=== PATIENT | female | born 1955 | race Caucasian/White ===

== ENCOUNTER 2016-10-17 18:40 | Inpatient (IN) | payer MEDICAID, OTHER ==
[~2016-10-17] VITALS: Ht 167.6 cm; Wt 58.1 kg
[2016-10-17] MEDS ORDERED: SERT50TA12 PO (19:00)
[2016-10-17] MEDS ORDERED: GABA-529 PO (19:00)
[2016-10-17] MEDS ORDERED: TRAZ-144 PO (19:00)
[2016-10-17] MEDS ORDERED: LORA0.5T2 PO (19:00)
[2016-10-17 19:06] LABS: EOSINOPHILS % (AUTO) 1.1 % (1.0-6.0); HEMATOCRIT 30.2 % (36-46); HEMOGLOBIN 9.9 g/dL (12.0-16.0); LYMPHOCYTES # (AUTO) 2.9 K/uL (1.0-4.8); LYMPHOCYTES % (AUTO) 29.4 % (22.0-44.0); MEAN CORPUSCULAR HEMOGLOBIN 29.1 pg (26.0-34.0); MEAN CORPUSCULAR HGB CONC 32.9 G/dL (31.0-37.0); MEAN CORPUSCULAR VOLUME 89 fL (80-100); MONOCYTES # (AUTO) 0.5 K/uL (0.1-1.0); MONOCYTES % (AUTO) 4.9 % (2.0-9.0); NEUTROPHILS # (AUTO) 6.3 K/uL (1.8-7.7); NEUTROPHILS % (AUTO) 63.6 % (40.0-70.0); PLATELET COUNT (AUTO) 505 K/uL (150-450); RED CELL DISTRIBUTION WIDTH 20.3 % (11.5-14.5); WHITE BLOOD COUNT (AUTO) 9.9 K/uL (4.5-11.0)
[2016-10-17 19:18] LABS: ANION GAP 9 mmol/L (8-16); CALCIUM, TOTAL 9.1 mg/dL (8.8-10.5); CARBON DIOXIDE 27 mmol/L (22-29); CHLORIDE 105 mmol/L (98-107); CREATININE 0.79 mg/dL (0.60-1.30); GLOMERULAR FILTR. RATE CALC > 60 mL/min (>60); POTASSIUM 3.5 mmol/L (3.5-5.1); SODIUM SERUM 141 mmol/L (136-145); UREA NITROGEN, BLOOD 8 mg/dL (7-18)
[2016-10-17 19:24] LABS: ALANINE AMINOTRANSFERASE 49 U/L (12-78); ALBUMIN 3.4 g/dL (3.4-5.0); ASPARTATE AMINOTRANSFERASE 47 U/L (15-37); BILIRUBIN,TOTAL 0.5 mg/dL (0.1-1.0); TOTAL PROTEIN, SERUM 6.8 g/dL (6.4-8.2)
[2016-10-17 19:49] LABS: RBC MORPHOLOGY COMMENT ABNORMAL RBC MORPH
[2016-10-17] MEDS ORDERED: LORazepam 2 MG TABLET PO ONE (20:00)
[2016-10-17] MEDS ORDERED: BACITRACIN 0.9 GM PACKET OINTMENT TP ONE (20:00)
[2016-10-17] MEDS ORDERED: ZOLPIDEM TARTRATE 10 MG TABLET PO PRN (20:15)
[2016-10-17] MEDS ORDERED: OLANZapine 5 MG RAPDIS TABLET PO PRN (20:15)
[2016-10-17 22:38] VITALS: BP 111/65
[2016-10-17] MEDS ORDERED: PNEUMOCOCCAL VACCINE POLYVALENT 0.5 ML VIAL [PPSV23] IM ONE (23:45)
[2016-10-18 06:21] VITALS: BP 113/67
[2016-10-18 08:24] VITALS: BP 109/77
[2016-10-18] MEDS: LORazepam 2 MG TABLET PO PRN ×2 (10:24→18:13)
[2016-10-18] MEDS ORDERED: ACETAMINOPHEN 325 MG TABLET PO PRN (10:30)
[2016-10-18 11:25] VITALS: BP 112/78
[2016-10-18] MEDS: GABAPENTIN 100 MG CAPSULE PO SCH (11:28)
[2016-10-18] MEDS: SERTRALINE HCL 50 MG TABLET PO SCH (11:28)
[2016-10-18] MEDS: IBUPROFEN 600 MG TABLET PO PRN (11:29)
[2016-10-18] MEDS: NICOTINE 14 MG/24 HOUR PATCH TD SCH (12:59)
[2016-10-18] MEDS: MULTIVITAMINS WITH IRON TABLET PO SCH (15:00)
[2016-10-18 16:29] VITALS: BP 119/70
[2016-10-18] MEDS: NEOMYCIN/BACITRACIN/POLYMYXIN B 30 GM OINTMENT TP SCH (17:27)
[2016-10-18] MEDS: DOXYCYCLINE 100 MG CAPSULE PO SCH (17:27)
[2016-10-18] MEDS: FERROUS SULFATE 325 MG EC TABLET PO SCH (17:27)
[2016-10-18] MEDS: SULFAMETHOX/TRIMETH DS 800-160 MG/TABLET PO SCH (17:27)
[2016-10-18] MEDS: TraZODone HCL 50 MG TABLET PO SCH (20:31)
[2016-10-19] VITALS (11 sets, daily range): BP systolic 106–121; BP diastolic 60–74
[2016-10-19] MEDS: FERROUS SULFATE 325 MG EC TABLET PO SCH ×2 (06:28→17:02)
[2016-10-19] MEDS: SULFAMETHOX/TRIMETH DS 800-160 MG/TABLET PO SCH ×2 (08:44→17:02)
[2016-10-19] MEDS: GABAPENTIN 100 MG CAPSULE PO SCH (08:44)
[2016-10-19] MEDS: DOXYCYCLINE 100 MG CAPSULE PO SCH ×2 (08:44→17:02)
[2016-10-19] MEDS: SERTRALINE HCL 50 MG TABLET PO SCH (08:45)
[2016-10-19] MEDS: MULTIVITAMINS WITH IRON TABLET PO SCH (08:45)
[2016-10-19] MEDS: IBUPROFEN 600 MG TABLET PO PRN ×2 (08:45→14:48)
[2016-10-19] MEDS: LORazepam 2 MG TABLET PO PRN ×2 (09:23→14:48)
[2016-10-19] MEDS: NICOTINE 14 MG/24 HOUR PATCH TD SCH (09:24)
[2016-10-19] MEDS: NEOMYCIN/BACITRACIN/POLYMYXIN B 30 GM OINTMENT TP SCH ×2 (10:50→17:09)
[2016-10-19] MEDS ORDERED: LORazepam 2 MG TABLET PO PRN (16:00)
[2016-10-19] MEDS ORDERED: GuaiFENesin/D-METHORPHAN [SUGAR-FREE] 200-20MG/10 ML SYRUP UDCUP PO PRN (16:00)
[2016-10-19] MEDS ORDERED: TUBERCULIN, PURIFIED PROTEIN DERIVATIVE 5 TU/0.1 ML SYG ID ONE (16:00)
[2016-10-19] MEDS ORDERED: ACETAMINOPHEN 325 MG TABLET PO PRN (16:00)
[2016-10-19] MEDS ORDERED: LOPERAMIDE HCL 2 MG CAPSULE PO PRN ×2 (16:00)
[2016-10-19] MEDS ORDERED: MAG HYDROX/AL HYDROX/SIMETH ES 30 ML SUSPENSION UDCUP PO PRN (16:00)
[2016-10-19] MEDS ORDERED: MAGNESIUM HYDROXIDE SUSPENSION 30 ML UDCUP PO PRN (16:00)
[2016-10-19] MEDS ORDERED: CYANOCOBALAMIN 1,000 MCG/ML VIAL IM ONE (16:00)
[2016-10-19] MEDS ORDERED: HydrOXYzine PAMOATE 50 MG CAPSULE PO PRN (16:00)
[2016-10-19] MEDS: THIAMINE HCL 100 MG TABLET PO SCH (17:01)
[2016-10-19] MEDS: TOPIRAMATE 25 MG TABLET PO SCH (17:02)
[2016-10-19] MEDS: GABAPENTIN 300 MG CAPSULE PO SCH ×2 (17:02→20:03)
[2016-10-19] MEDS: ACAMPROSATE CALCIUM 333 MG DR TABLET PO SCH (19:00)
[2016-10-19] MEDS: TraZODone HCL 50 MG TABLET PO SCH (20:03)
[2016-10-20] VITALS (9 sets, daily range): BP systolic 102–116; BP diastolic 65–79
[2016-10-20] MEDS: LORazepam 2 MG TABLET PO PRN (06:32)
[2016-10-20] MEDS: IBUPROFEN 600 MG TABLET PO PRN ×2 (06:33→16:24)
[2016-10-20] MEDS: FERROUS SULFATE 325 MG EC TABLET PO SCH ×2 (06:40→16:19)
[2016-10-20] MEDS ORDERED: LORazepam 2 MG TABLET PO PRN (07:00)
[2016-10-20] MEDS: MULTIVITAMINS WITH MINERALS, THERAPEUTIC TABLET PO SCH (08:11)
[2016-10-20] MEDS: THIAMINE HCL 100 MG TABLET PO SCH ×2 (08:11→16:18)
[2016-10-20] MEDS: FOLIC ACID 1 MG TABLET PO SCH (08:11)
[2016-10-20] MEDS: ACAMPROSATE CALCIUM 333 MG DR TABLET PO SCH ×3 (08:11→16:19)
[2016-10-20] MEDS: DOXYCYCLINE 100 MG CAPSULE PO SCH ×2 (08:11→16:19)
[2016-10-20] MEDS: SERTRALINE HCL 50 MG TABLET PO SCH (08:12)
[2016-10-20] MEDS: NICOTINE 14 MG/24 HOUR PATCH TD SCH (08:12)
[2016-10-20] MEDS: LORazepam 2 MG TABLET PO SCH ×4 (08:12→20:51)
[2016-10-20] MEDS: NALTREXONE HCL 50 MG TABLET PO SCH (08:12)
[2016-10-20] MEDS: SULFAMETHOX/TRIMETH DS 800-160 MG/TABLET PO SCH ×2 (08:12→16:19)
[2016-10-20] MEDS: TOPIRAMATE 25 MG TABLET PO SCH ×3 (08:12→16:19)
[2016-10-20] MEDS: GABAPENTIN 300 MG CAPSULE PO SCH ×4 (08:12→20:51)
[2016-10-20] MEDS: NEOMYCIN/BACITRACIN/POLYMYXIN B 30 GM OINTMENT TP SCH ×2 (08:13→16:20)
[2016-10-20] MEDS: TraZODone HCL 50 MG TABLET PO SCH (20:51)
[2016-10-21 04:54] VITALS: BP 100/58
[2016-10-21] MEDS: FERROUS SULFATE 325 MG EC TABLET PO SCH ×2 (07:00→16:47)
[2016-10-21] MEDS: PROMETHAZINE HCL 25 MG TABLET PO PRN ×2 (08:03→20:24)
[2016-10-21 08:20] VITALS: BP 142/95
[2016-10-21 08:30] VITALS: BP 142/95
[2016-10-21] MEDS: ACAMPROSATE CALCIUM 333 MG DR TABLET PO SCH ×3 (08:30→16:47)
[2016-10-21] MEDS: NICOTINE 14 MG/24 HOUR PATCH TD SCH (08:30)
[2016-10-21] MEDS: SERTRALINE HCL 50 MG TABLET PO SCH (08:31)
[2016-10-21] MEDS: THIAMINE HCL 100 MG TABLET PO SCH ×2 (08:32→16:47)
[2016-10-21] MEDS: SULFAMETHOX/TRIMETH DS 800-160 MG/TABLET PO SCH ×2 (08:32→16:46)
[2016-10-21] MEDS: NALTREXONE HCL 50 MG TABLET PO SCH (08:32)
[2016-10-21] MEDS: TOPIRAMATE 25 MG TABLET PO SCH ×3 (08:32→16:47)
[2016-10-21] MEDS: DOXYCYCLINE 100 MG CAPSULE PO SCH ×2 (08:33→16:47)
[2016-10-21] MEDS: LORazepam 2 MG TABLET PO SCH ×5 (08:33→20:23)
[2016-10-21] MEDS: GABAPENTIN 300 MG CAPSULE PO SCH ×4 (08:33→20:24)
[2016-10-21] MEDS: FOLIC ACID 1 MG TABLET PO SCH (08:33)
[2016-10-21] MEDS: MULTIVITAMINS WITH MINERALS, THERAPEUTIC TABLET PO SCH (08:33)
[2016-10-21] MEDS: NEOMYCIN/BACITRACIN/POLYMYXIN B 30 GM OINTMENT TP SCH ×2 (09:00→16:47)
[2016-10-21 16:09] VITALS: BP 111/63
[2016-10-21] MEDS: TraZODone HCL 50 MG TABLET PO SCH (20:24)
[2016-10-22] VITALS (9 sets, daily range): BP systolic 95–113; BP diastolic 48–69
[2016-10-22] MEDS ORDERED: LORazepam 1 MG TABLET PO PRN (07:00)
[2016-10-22] MEDS: FERROUS SULFATE 325 MG EC TABLET PO SCH ×2 (07:02→16:24)
[2016-10-22] MEDS: TOPIRAMATE 25 MG TABLET PO SCH ×2 (09:00→21:00)
[2016-10-22] MEDS: NALTREXONE HCL 50 MG TABLET PO SCH (09:00)
[2016-10-22] MEDS: GABAPENTIN 300 MG CAPSULE PO SCH ×4 (09:00→21:00)
[2016-10-22] MEDS: SERTRALINE HCL 50 MG TABLET PO SCH (09:00)
[2016-10-22] MEDS: LORazepam 1 MG TABLET PO SCH ×4 (09:00→21:00)
[2016-10-22] MEDS: ACAMPROSATE CALCIUM 333 MG DR TABLET PO SCH ×3 (09:00→16:24)
[2016-10-22] MEDS: SULFAMETHOX/TRIMETH DS 800-160 MG/TABLET PO SCH (09:55)
[2016-10-22] MEDS: DOXYCYCLINE 100 MG CAPSULE PO SCH (09:55)
[2016-10-22] MEDS: NICOTINE 14 MG/24 HOUR PATCH TD SCH (09:55)
[2016-10-22] MEDS: THIAMINE HCL 100 MG TABLET PO SCH ×2 (09:56→16:24)
[2016-10-22] MEDS: FOLIC ACID 1 MG TABLET PO SCH (09:56)
[2016-10-22] MEDS: MULTIVITAMINS WITH MINERALS, THERAPEUTIC TABLET PO SCH (09:56)
[2016-10-22] MEDS: NEOMYCIN/BACITRACIN/POLYMYXIN B 30 GM OINTMENT TP SCH ×2 (09:58→16:24)
[2016-10-22] MEDS: TraZODone HCL 50 MG TABLET PO SCH (21:00)
[2016-10-22] MEDS: IBUPROFEN 600 MG TABLET PO PRN (23:01)
[2016-10-23 05:23] VITALS: BP 113/77
[2016-10-23] MEDS: FERROUS SULFATE 325 MG EC TABLET PO SCH ×2 (06:42→16:23)
[2016-10-23] MEDS ORDERED: LORazepam 1 MG TABLET PO PRN (07:00)
[2016-10-23 08:00] VITALS: BP 106/68
[2016-10-23 08:19] LABS: BASOPHILS % (AUTO) 0.9 % (0.0-2.0); EOSINOPHILS % (AUTO) 1.8 % (1.0-6.0); HEMOGLOBIN 10.9 g/dL (12.0-16.0); LYMPHOCYTES # (AUTO) 2.6 K/uL (1.0-4.8); LYMPHOCYTES % (AUTO) 37.8 % (22.0-44.0); MEAN CORPUSCULAR HEMOGLOBIN 29.6 pg (26.0-34.0); MEAN CORPUSCULAR HGB CONC 33.2 G/dL (31.0-37.0); MEAN CORPUSCULAR VOLUME 89 fL (80-100); MONOCYTES # (AUTO) 0.4 K/uL (0.1-1.0); NEUTROPHILS # (AUTO) 3.7 K/uL (1.8-7.7); NEUTROPHILS % (AUTO) 53.5 % (40.0-70.0); PLATELET COUNT (AUTO) 327 K/uL (150-450); RED BLOOD CELL COUNT(AUTO) 3.69 MIL/uL (4.00-5.20); RED CELL DISTRIBUTION WIDTH 20.3 % (11.5-14.5); WHITE BLOOD COUNT (AUTO) 6.9 K/uL (4.5-11.0)
[2016-10-23 08:29] LABS: RBC MORPHOLOGY COMMENT ABNORMAL RBC MORPH
[2016-10-23] MEDS: MULTIVITAMINS WITH MINERALS, THERAPEUTIC TABLET PO SCH (08:48)
[2016-10-23] MEDS: ACAMPROSATE CALCIUM 333 MG DR TABLET PO SCH ×3 (08:48→16:22)
[2016-10-23] MEDS: GABAPENTIN 300 MG CAPSULE PO SCH ×2 (08:48→12:21)
[2016-10-23] MEDS: NALTREXONE HCL 50 MG TABLET PO SCH (08:48)
[2016-10-23] MEDS: FOLIC ACID 1 MG TABLET PO SCH (08:50)
[2016-10-23] MEDS: NICOTINE 14 MG/24 HOUR PATCH TD SCH (08:50)
[2016-10-23] MEDS: THIAMINE HCL 100 MG TABLET PO SCH ×2 (08:50→16:23)
[2016-10-23] MEDS: SERTRALINE HCL 50 MG TABLET PO SCH (08:50)
[2016-10-23 09:06] VITALS: BP 106/68
[2016-10-23 09:15] LABS: ALANINE AMINOTRANSFERASE 34 U/L (12-78); ALBUMIN 3.3 g/dL (3.4-5.0); ANION GAP 9 mmol/L (8-16); ASPARTATE AMINOTRANSFERASE 28 U/L (15-37); BILIRUBIN,TOTAL 0.3 mg/dL (0.1-1.0); CALCIUM, TOTAL 9.2 mg/dL (8.8-10.5); CARBON DIOXIDE 28 mmol/L (22-29); CHLORIDE 107 mmol/L (98-107); CHOL/HDL RATIO 3.8 (3.9-5.7); CREATININE 0.89 mg/dL (0.60-1.30); GLOMERULAR FILTR. RATE CALC > 60 mL/min (>60); POTASSIUM 4.4 mmol/L (3.5-5.1); SODIUM SERUM 144 mmol/L (136-145); TOTAL PROTEIN, SERUM 6.9 g/dL (6.4-8.2); UREA NITROGEN, BLOOD 19 mg/dL (7-18)
[2016-10-23] MEDS: NEOMYCIN/BACITRACIN/POLYMYXIN B 30 GM OINTMENT TP SCH ×2 (09:27→16:23)
[2016-10-23] MEDS ORDERED: GABAPENTIN 300 MG CAPSULE PO PRN (12:45)
[2016-10-23 16:00] VITALS: BP 106/74
[2016-10-23] MEDS: GABAPENTIN 400 MG CAPSULE PO SCH ×2 (16:23→20:12)
[2016-10-23] MEDS: TOPIRAMATE 25 MG TABLET PO SCH (20:12)
[2016-10-23] MEDS: IBUPROFEN 600 MG TABLET PO PRN (20:12)
[2016-10-23] MEDS: TraZODone HCL 50 MG TABLET PO SCH (20:12)
[2016-10-24] MEDS: FERROUS SULFATE 325 MG EC TABLET PO SCH ×2 (06:40→17:06)
[2016-10-24 06:42] VITALS: BP 102/65
[2016-10-24] MEDS: SERTRALINE HCL 100 MG TABLET PO SCH (08:17)
[2016-10-24] MEDS: NALTREXONE HCL 50 MG TABLET PO SCH (08:17)
[2016-10-24] MEDS: MULTIVITAMINS WITH MINERALS, THERAPEUTIC TABLET PO SCH (08:17)
[2016-10-24] MEDS: ACAMPROSATE CALCIUM 333 MG DR TABLET PO SCH ×3 (08:17→16:11)
[2016-10-24] MEDS: NICOTINE 14 MG/24 HOUR PATCH TD SCH (08:17)
[2016-10-24] MEDS: GABAPENTIN 400 MG CAPSULE PO SCH ×4 (08:17→20:04)
[2016-10-24] MEDS: THIAMINE HCL 100 MG TABLET PO SCH ×2 (08:17→16:12)
[2016-10-24] MEDS: FOLIC ACID 1 MG TABLET PO SCH (08:17)
[2016-10-24 08:36] VITALS: BP 99/66
[2016-10-24] MEDS: NEOMYCIN/BACITRACIN/POLYMYXIN B 30 GM OINTMENT TP SCH ×2 (09:00→16:13)
[2016-10-24 16:00] VITALS: BP 104/62
[2016-10-24] MEDS: TraZODone HCL 50 MG TABLET PO SCH (20:04)
[2016-10-24] MEDS: TOPIRAMATE 25 MG TABLET PO SCH (20:05)
[2016-10-25] MEDS: FERROUS SULFATE 325 MG EC TABLET PO SCH ×2 (06:42→17:02)
[2016-10-25 08:07] VITALS: BP 103/63
[2016-10-25] MEDS: MULTIVITAMINS WITH MINERALS, THERAPEUTIC TABLET PO SCH (08:26)
[2016-10-25] MEDS: FOLIC ACID 1 MG TABLET PO SCH (08:26)
[2016-10-25] MEDS: NICOTINE 14 MG/24 HOUR PATCH TD SCH (08:26)
[2016-10-25] MEDS: NALTREXONE HCL 50 MG TABLET PO SCH (08:26)
[2016-10-25] MEDS: ACAMPROSATE CALCIUM 333 MG DR TABLET PO SCH ×3 (08:26→17:02)
[2016-10-25] MEDS: GABAPENTIN 400 MG CAPSULE PO SCH ×4 (08:26→20:04)
[2016-10-25] MEDS: SERTRALINE HCL 100 MG TABLET PO SCH (08:26)
[2016-10-25] MEDS: THIAMINE HCL 100 MG TABLET PO SCH ×2 (08:26→17:01)
[2016-10-25] MEDS: NEOMYCIN/BACITRACIN/POLYMYXIN B 30 GM OINTMENT TP SCH ×2 (08:30→17:05)
[2016-10-25] MEDS ORDERED: PETROLATUM,WHITE 71 GM JELLY TP PRN (10:45)
[2016-10-25 16:17] VITALS: BP 116/65
[2016-10-25 18:06] VITALS: BP 120/66
[2016-10-25] MEDS: IBUPROFEN 600 MG TABLET PO PRN (18:06)
[2016-10-25] MEDS: TraZODone HCL 50 MG TABLET PO SCH (20:04)
[2016-10-25] MEDS: TOPIRAMATE 25 MG TABLET PO SCH (20:05)
[2016-10-26] MEDS: FERROUS SULFATE 325 MG EC TABLET PO SCH ×2 (06:20→17:12)
[2016-10-26 08:06] VITALS: BP 107/66
[2016-10-26] MEDS: SERTRALINE HCL 100 MG TABLET PO SCH (08:22)
[2016-10-26] MEDS: THIAMINE HCL 100 MG TABLET PO SCH ×2 (08:22→16:21)
[2016-10-26] MEDS: ACAMPROSATE CALCIUM 333 MG DR TABLET PO SCH ×3 (08:22→16:20)
[2016-10-26] MEDS: FOLIC ACID 1 MG TABLET PO SCH (08:22)
[2016-10-26] MEDS: NALTREXONE HCL 50 MG TABLET PO SCH (08:22)
[2016-10-26] MEDS: NEOMYCIN/BACITRACIN/POLYMYXIN B 30 GM OINTMENT TP SCH ×2 (08:22→16:21)
[2016-10-26] MEDS: GABAPENTIN 400 MG CAPSULE PO SCH ×4 (08:22→20:45)
[2016-10-26] MEDS: MULTIVITAMINS WITH MINERALS, THERAPEUTIC TABLET PO SCH (08:22)
[2016-10-26] MEDS: NICOTINE 14 MG/24 HOUR PATCH TD SCH (08:22)
[2016-10-26 16:04] VITALS: BP 105/71
[2016-10-26] MEDS: TOPIRAMATE 25 MG TABLET PO SCH (20:45)
[2016-10-26] MEDS ORDERED: TraZODone HCL 100 MG TABLET PO SCH (21:00)
[2016-10-27] MEDS ORDERED: SERT100T12 PO (04:11)
[2016-10-27] MEDS ORDERED: NICO14T TD (04:11)
[2016-10-27] MEDS ORDERED: TOPI25 PO (04:11)
[2016-10-27] MEDS ORDERED: TRAZ-147 PO (04:11)
[2016-10-27] MEDS ORDERED: FERR-89 PO (04:11)
[2016-10-27] MEDS ORDERED: GABA-533 PO (04:11)
[2016-10-27] MEDS ORDERED: NALT50 PO (04:11)
[2016-10-27] MEDS ORDERED: ACAM333T7 PO (04:11)
[2016-10-27] MEDS ORDERED: FOLI1 PO (04:11)
[2016-10-27] MEDS ORDERED: NEOM1OIN8 TP (04:11)
[2016-10-27] MEDS ORDERED: MULT-723 PO (04:11)
[2016-10-27] MEDS ORDERED: THIA100 PO (04:11)
[2016-10-27 06:42] VITALS: BP 104/71
[2016-10-27] MEDS: FERROUS SULFATE 325 MG EC TABLET PO SCH (06:43)
[2016-10-27 08:20] VITALS: BP 100/58
[2016-10-27 08:36] VITALS: BP 107/71
[2016-10-27] MEDS: NICOTINE 14 MG/24 HOUR PATCH TD SCH (08:37)
[2016-10-27] MEDS: MULTIVITAMINS WITH MINERALS, THERAPEUTIC TABLET PO SCH (08:37)
[2016-10-27] MEDS: FOLIC ACID 1 MG TABLET PO SCH (08:37)
[2016-10-27] MEDS: THIAMINE HCL 100 MG TABLET PO SCH (08:37)
[2016-10-27] MEDS: GABAPENTIN 400 MG CAPSULE PO SCH (08:37)
[2016-10-27] MEDS: NALTREXONE HCL 50 MG TABLET PO SCH (08:37)
[2016-10-27] MEDS: ACAMPROSATE CALCIUM 333 MG DR TABLET PO SCH (08:37)
[2016-10-27] MEDS: NEOMYCIN/BACITRACIN/POLYMYXIN B 30 GM OINTMENT TP SCH (08:40)
[2016-10-27] MEDS ORDERED: SERTRALINE HCL 100 MG TABLET PO SCH (09:00)
== END 2016-10-27 10:10 | disposition home or self-care (01) | DRG 750 ==
LOC: EMS 18:43 → B2S 20:53
PROVIDERS: ADMIT Psychiatry & Neurology Child & Adolescent Psychiatry; ATTEND Psychiatry & Neurology Psychiatry
PROC: HZ2ZZZZ Detoxification Services for Substance Abuse Treatment (ICD-10-PCS; principal; 2016-10-19)
DX: F25.0 Schizoaffective disorder, bipolar type (principal); L03.116 Cellulitis of left lower limb; I10 Essential (primary) hypertension; D64.9 Anemia, unspecified; F17.200 Nicotine dependence, unspecified, uncomplicated; F10.20 Alcohol dependence, uncomplicated; Z98.84 Bariatric surgery status; F32.9 Major depressive disorder, single episode, unspecified; F41.9 Anxiety disorder, unspecified; L97.529 Non-pressure chronic ulcer of other part of left foot with unspecified severity; L97.519 Non-pressure chronic ulcer of other part of right foot with unspecified severity; Z59.0 Homelessness; Z91.19 Patient's noncompliance with other medical treatment and regimen; Z87.898 Personal history of other specified conditions; Z28.21 Immunization not carried out because of patient refusal
CPT/HCPCS: 82271; 82306; 82607; 82746; 83735; 87081; 99285; G0480; J3420